=== PATIENT | male | born 1945 | race Two or more races ===

== ENCOUNTER 2017-02-07 10:07 | Emergency (ER) | payer OTHER ==
[2017-02-07 10:21] VITALS: BP 149/87
[2017-02-07] MEDS ORDERED: Tetan/Diph/Pertus SYR(Tdap)* 0.5 ML SYR(BOOSTRIX) use SYR IM ONE (10:55)
--- NOTE | 2017-02-07 11:03 | UC ---
Laceration HPI - HPI Summary HPI Summary: PT WAS PLAYING SQUASH EARLIER THIS MORNING WHEN HE SLIPPED AND STRUCK THE SIDE OF HIS FACE ON THE WALL AND HIS GOGGLES WERE PUSHED INTO HIS FACE. HE SUSTAINED A LACERATION JUST UNDER HI LEFT EYEBROW. NO VISUAL DISTURBANCE OR PAIN WITH EYE MOVEMENT. NO LOC. NO PARMAR, NAUSEA OR DIZZINESS. UNKNOWN DATE OF LAST TETANUS. - History Of Current Complaint Chief Complaint: UCLaceration Stated Complaint: FACIAL LACERATION Time Seen by Provider: 02/07/17 10:17 Hx Obtained From: Patient Laceration Location: Face Mechanism Of Injury: Sharp Trauma Onset/Duration: Sudden Onset, Lasting Hours, Still Present Severity: Mild Pain Intensity: 2 Pain Scale Used: 0-10 Numeric - Allergies/Home Medications Allergies/Adverse Reactions: Allergies Allergy/AdvReac Type Severity Reaction Status Date / Time Ceftriaxone [From Rocephin] Allergy Itching Verified 04/13/15 07:42 Home Medications: Home Medications Atorvastatin* [Lipitor 10 MG*] 10 mg PO DAILY 02/07/17 [History Confirmed ] Lactobacillus [Probiotic] 1 cap PO 02/07/17 [History] PMH/Surg Hx/FS Hx/Imm Hx Previously Healthy: Yes - Surgical History Surgical History: Yes Surgery Procedure, Year, and Place: Knee at age 6. arm age 7. MULTIPLE CYST, STENT FOR STONES. CYSTO, STENT 04/03 [facility] - Family History Known Family History: Negative: Hypertension - Social History Alcohol Use: None Substance Use Type: None Smoking Status (MU): Never Smoked Tobacco - Immunization History Most Recent Influenza Vaccination: last season Most Recent Tetanus Shot: 10-15 years ago Most Recent Pneumonia Vaccination: unknown Review of Systems Constitutional: Negative Skin: Other - LACERATION Respiratory: Negative Cardiovascular: Negative Gastrointestinal: Negative Neurological: Negative All Other Systems Reviewed And Are Negative: Yes Physical Exam Triage Information Reviewed: Yes Appearance: Well-Appearing, No Pain Distress, Well-Nourished Vital Signs: Initial Vital Signs Temp 97.7 F 02/07/17 10:18 Pulse 70 02/07/17 10:18 Resp 14 02/07/17 10:18 BP 149/87 02/07/17 10:18 Pulse Ox 94 02/07/17 10:18 Vital Signs Reviewed: Yes Eyes: Positive: Conjunctiva Clear ENT: Positive: Hearing grossly normal Neck: Positive: Supple Respiratory: Positive: No respiratory distress, No accessory muscle use Cardiovascular: Positive: Pulses Normal Abdomen Description: Positive: Soft Musculoskeletal: Positive: No Edema Neurological: Positive: Alert Psychological: Positive: Normal Response To Family, Age Appropriate Behavior Skin: Positive: Other - 3 CM LINEAR LACERATION UNDER LEFT EYEBROW. EDGES WELL APPROXIMATED. NO ACTIVE BLEEDING. Laceration Repair - Laceration Repair 1 Description: Linear Laceration Size After Repair: Length (cm) - 3CM, Width (mm) - 0MM, Depth (mm) - 4MM Modified For Repair: No Irrigation With Pressure Irrigation Device: Yes Closure Material: Skin Adhesive, SteriStrips Laceration Course/Dx - Differential Dx - Laceration/Wound Provider Diagnoses: LACERATION REPAIR UNDER LEFT EYEBROW Discharge - Discharge Plan Condition: Stable Disposition: HOME Patient Education Materials: Facial Laceration (ED) Referrals: Bryan Menendez MD [Primary Care Provider] - If Needed Additional Instructions: THE STERISTRIPS WILL FALL OFF ON THEIR OWN IN THE NEXT 1-2 WEEKS. DO NOT PUT ANY OINTMENT ON TOP OF THEM. DO NOT SUBMERGE IN WATER FOR PROLONGED PERIOD OF TIME. OKAY FOR BRIEF SHOWER AFTER 24 HOURS AND THEN BE SURE TO DRY COMPLETELY. SEEK FOLLOW-UP IF YOU DEVELOP SPREADING REDNESS OF THE SKIN, PURULENT DRAINAGE, FEVER, INCREASED PAIN OR ANY OTHER CONCERNING SYMPTOMS. TETANUS IMMUNIZATION GIVEN (TDAP): You have been given an immunization against tetanus. Please record this in your records. In general, a booster is needed only once every 10 years. The tetanus shot protects against tetanus or "lockjaw," which is a complication of certain wound infections (the tetanus shot cannot protect against the actual infection). The immunization site may become warm and red due to local reaction. If this occurs, apply warm compresses and take aspirin or ibuprofen to reduce inflammation and discomfort. Return for evaluation if the reaction becomes severe.
== END 2017-02-07 11:14 | disposition home or self-care (01) ==
LOC: UCEAST 10:07
DX: S01.112A Laceration without foreign body of left eyelid and periocular area, initial encounter (principal); Z88.3 Allergy status to other anti-infective agents; W22.01XA Walked into wall, initial encounter; Y93.73 Activity, racquet and hand sports
CPT/HCPCS: 12013; 90471; 90715; 99211; G0463

== ENCOUNTER 2017-04-17 12:07 | Day surgery (SDC) | payer OTHER ==
[~2017-04-17 12:07] MED LIST: Acetaminophen TAB* 325 MG PO ONE; Buffered Lidocaine 0.9% SYRIN* 5 ML/SYR SYRINGE INTRADERM ONE; Dexamethasone IV* 4 MG/ML 1 ML (4 MG) IV SLOW PU ONE; Famotidine IV* 10 MG/ML 2 ML (20 mg) IV ONE
[2017-04-17] MEDS ORDERED: Bupivacaine 0.25% SDV* 30 ML ONE (14:00)
[2017-04-17] MEDS ORDERED: Lidocaine 1% INJ* 10 MG/ML 30 ML SDV ONE (14:00)
[2017-04-17] MEDS ORDERED: Dexamethasone IV* 4 MG/ML 1 ML (4 MG) ONE (14:00)
[2017-04-17 15:11] VITALS: BP 118/73
--- NOTE | 2017-04-18 03:07 | OP ---
DATE OF OPERATION: 04/17/17 - [facility] DATE OF : 43 SURGEON: Mark Portillo DPM. MEDICAL REVIEW COORDINATOR: Nell. ANESTHESIA: Straight local. PRE-OP DIAGNOSIS: Ganglion cyst. POST-OP DIAGNOSIS: Ganglion cyst. OPERATIVE PROCEDURE: Excision of a cyst as well as a pedicle flap in the dorsal aspect of the right big toe. ESTIMATED BLOOD LOSS: Less than 10 cc. IV FLUIDS: None. DRAINS: None. SPECIMENS: Slice wedge of skin. DESCRIPTION OF PROCEDURE: The patient was taken to the operating room and was placed in a supine position, time-out was called and OR team agreed. The right big toe was then blocked with 3 cc of 1% lidocaine plain in a ring block fashion. The foot was then prepped and draped in a sterile manner. The right foot was then exsanguinated with an Esmarch bandage and the cuff was then inflated to 250 mmHg. Attention was then paid to the right big toe. Approximately 7 to 10 mm in the proximal border of the nail, there appeared to be a crusty buildup that in the . The patient reported as a cyst that discharges from time to time. Today, I did notice a crusted lesion. I gently removed some of that crusted buildup and it appeared to be more of a macular lesion and it was more flat and cystic at this time. I then proceeded to excise that along with a good margin, creating a triangular shape defect. Once I inspected the underlying tissue, the subcutaneous as well as the deep fascia and the envelope around the distal interphalangeal joint, I examined it for any defects. There appeared to be not any defect at all. Just for a good measure, I took a Vicryl and capped the area around the distal interphalangeal joint. Once this was done so, I then proceeded to irrigate the site and perform a small rotational pedicle flap, drawing a tissue from the dorsal aspect and advancing it to cover the defect. This was closed in a layered anatomical fashion and closed it with 3-0 nylon in a simple suture technique. This completed the procedure. The cuff was then deflated. The toe and the foot was placed in a dry sterile dressing. The patient was taken to Recovery in stable condition and was later discharged in stable condition as well. [id number]/[facility] #: [id number] [facility]
== END 2017-04-17 15:14 | disposition home or self-care (01) ==
LOC: OR 12:07
PROVIDERS: ATTEND Podiatrist
DX: D21.21 Benign neoplasm of connective and other soft tissue of right lower limb, including hip (principal)
CPT/HCPCS: 88305; J1100; J2001

== ENCOUNTER 2017-12-27 14:24 | Emergency (ER) | payer OTHER ==
[2017-12-27 14:30] VITALS: BP 134/77
[2017-12-27] MEDS ORDERED: DOXYcycline CAP(*) 100 MG PO ONE (14:39)
--- NOTE | 2017-12-27 14:40 | UC ---
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 Cannot remove with one hand, here for removal and would very much like antibiotic prophylaxis. - History of Current Complaint Chief Complaint: UCSkin Time Seen by Provider: 12/27/17 14:35 Stated Complaint: TICK Hx Obtained From: Patient Onset/Duration: Sudden Onset Timing: Constant Onset Severity: Mild Current Severity: Mild Pain Intensity: 0 Location: Hand (Left) Character: Raised Aggravating Factor(s): Nothing Alleviating Factor(s): Nothing Associated Signs & Symptoms: Positive: Negative Related History: Insect Bite/Sting - Allergy/Home Medications Allergies/Adverse Reactions: Allergies Allergy/AdvReac Type Severity Reaction Status Date / Time ceftriaxone Allergy Itching Verified 12/27/17 14:30 Review of Systems Constitutional: Negative Skin: Other - tick bite Eyes: Negative ENT: Negative Respiratory: Negative Cardiovascular: Negative Gastrointestinal: Negative Genitourinary: Negative Motor: Negative Neurovascular: Negative Musculoskeletal: Negative Neurological: Negative Psychological: Negative Is Patient Immunocompromised?: No All Other Systems Reviewed And Are Negative: Yes PMH/Surg Hx/FS Hx/Imm Hx Previously Healthy: Yes - Surgical History Surgical History: Yes Surgery Procedure, Year, and Place: Knee at age 6. arm age 7. MULTIPLE CYST, STENT FOR STONES. CYSTO, STENT 04/03 [facility] - Family History Known Family History: Negative: Hypertension - Social History Lives: With Family Alcohol Use: None Substance Use Type: None Smoking Status (MU): Never Smoked Tobacco Have You Smoked in the Last Year: No - Immunization History Most Recent Influenza Vaccination: last season Most Recent Tetanus Shot: 10-15 years ago Most Recent Pneumonia Vaccination: unknown Physical Exam Triage Information Reviewed: Yes Appearance: Well-Appearing, No Pain Distress, Well-Nourished Vital Signs: Initial Vital Signs Temp 98.4 F 12/27/17 14:27 Pulse 91 12/27/17 14:27 Resp 18 12/27/17 14:27 BP 134/77 12/27/17 14:27 Pulse Ox 100 12/27/17 14:27 Vital Signs Reviewed: Yes Eye Exam: Normal Eyes: Positive: Conjunctiva Clear ENT Exam: Normal ENT: Positive: Normal ENT inspection, Hearing grossly normal, Pharynx normal, TMs normal Dental Exam: Normal Neck exam: Normal Neck: Positive: Supple, Nontender, No Lymphadenopathy Respiratory Exam: Normal Respiratory: Positive: Chest non-tender, Lungs clear, Normal breath sounds, No respiratory distress, No accessory muscle use Cardiovascular Exam: Normal Cardiovascular: Positive: RRR, No Murmur Musculoskeletal Exam: Normal Musculoskeletal: Positive: Strength Intact, ROM Intact, No Edema Neurological Exam: Normal Neurological: Positive: Alert Psychological Exam: Normal Skin Exam: Other - 2mm tick removed from L wrist with tick twister, pt poonam well. No erythema or streaking. Course/Dx - Diagnoses Provider Diagnoses: tick bite L wrist Discharge - Sign-Out/Discharge Documenting (check all that apply): Discharge/Admit/Transfer - Discharge Plan Condition: Stable Disposition: HOME Patient Education Materials: Tick Bite (ED) Referrals: Bryan Menendez MD [Primary Care Provider] - Additional Instructions: TICK BITE: You have been bitten by a tick. Once the tick is removed, these "bites" usually cause no problems. Tick fever, tick paralysis, [place] Spotted fever, and Lyme disease are uncommon -- but you should mention this tick bite to your doctor if you develop unusual symptoms in the next several weeks. If you develop any of the following, please see your physician promptly: (1) Fever, chills, or generalized malaise associated with a headache. (2) A red round area at the site of the bite (or elsewhere) (3) Joint pain, joint swelling or generalized weakness. (4) Redness, swelling, or drainage at the site of the bite. Check yourself, your children and your pets for ticks whenever you've been in an area where ticks live. To remove a tick, grasp it firmly with some tweezers or a string in a slipknot as close to its head as possible and pull it steadily. Ticks do not have a typical "head" attached to their body. There are mouth parts sticking out which they use to feed. If there are mouth parts left behind in the wound there is NO increased risk of Lyme infection; however, the chances of a bacterial skin infection (cellulitis) are higher. If mouth parts remain after tick removal, the best thing to do is apply warm soaks to the area 3-4 times per day to encourage the skin to expel the foreign material. DOXYCYCLINE: Doxycycline (Vibramycin, Doryx) is an antibiotic of the tetracycline family. This type of drug is useful for infections of the respiratory tract and genital tract, and is sometimes used for intestinal infections. Unlike most tetracyclines, doxycycline can be taken with food. It is longer acting, and (usually) less prone to side effects than regular tetracycline. Tetracycline antibiotics can stain immature teeth and SHOULD NOT BE TAKEN BY CHILDREN, NURSING MOTHERS, OR WOMEN. Tetracyclines can make you more prone to sunburn. Abdominal cramping, nausea, and diarrhea are occasional side effects. Women may experience vaginal yeast infections. Call the doctor at once if you develop hives, itching, shortness of breath , or lightheadedness. WHEN A TICK IS NOT ENGORGED AND HAS BEEN ON LESS THAN 24 HOURS - THE RISK FOR LYME IS NEGLIGIBLE. YOU CAN REMOVE THE TICK AND OBSERVE THE AREA ON YOUR OWN. FOLLOW-UP CARE: You should contact your private physician for follow-up care if you develop spreading redness near the site of the bite or on any other areas of the body. If you are unable to get a timely appointment, or if you are worsening, call us or return for re-evaluation. - Billing Disposition and Condition Condition: STABLE Disposition: Home
== END 2017-12-27 14:48 | disposition home or self-care (01) ==
LOC: UCEAST 14:24
DX: S60.862A Insect bite (nonvenomous) of left wrist, initial encounter (principal); W57.XXXA Bitten or stung by nonvenomous insect and other nonvenomous arthropods, initial encounter; Y93.9 Activity, unspecified; Y92.9 Unspecified place or not applicable; Z88.1 Allergy status to other antibiotic agents
CPT/HCPCS: 99212; A9270-GY; G0463